=== PATIENT | female | born 1975 | race American Indian/Alaskan Native ===

== ENCOUNTER 2016-08-14 15:28 | Emergency (ER) | payer MEDICAID, OTHER ==
[2016-08-14 15:28] VITALS: BMI 33.5
[2016-08-14 15:37] VITALS: RESP 20; O2SAT 100
[2016-08-14] MEDS ORDERED: Sodium Chloride 0.9% 1,000 ML IV ONE (15:47)
[2016-08-14 16:14] LABS: BASO # 0.1 K/uL (0.0-0.2); BASO % 0.7 % (0.0-2.0); EOS # 0.1 K/uL (0.0-0.7); EOS % 0.8 % (0.0-4.0); HEMATOCRIT 42.3 % (34.0-47.0); LYMPH # 1.2 K/uL (1.0-4.3); LYMPH % 12.9 % (20.0-40.0); MEAN CORPUSCULAR HGB CONC 32.7 g/dL (33.0-37.0); MEAN PLATELET VOLUME 7.9 fL (7.2-11.7); MONO # 0.3 K/uL (0.0-0.8); MONO % 3.5 % (0.0-10.0); RED CELL DISTRIBUTION WIDTH 13.8 % (11.5-14.5); WHITE BLOOD COUNT 9.2 K/uL (4.8-10.8)
[2016-08-14 16:25] LABS: CHLORIDE 104 mmol/L (98-107); POTASSIUM 4.3 mmol/L (3.6-5.2); SODIUM 138 mmol/L (132-148)
[2016-08-14 16:27] LABS: GFR AFRICAN-AMERICAN > 60
[2016-08-14 16:28] LABS: ALB/GLOB RATIO 1.3 (1.0-2.1); ALKALINE PHOSPHATASE 60 U/L (38-126); ALT/SGPT 25 U/L (9-52); AST/SGOT 23 U/L (14-36); BILIRUBIN,TOTAL 0.5 mg/dL (0.2-1.3); BLOOD UREA NITROGEN 9 mg/dL (7-17); CALCIUM 9.2 mg/dl (8.6-10.4); CARBON DIOXIDE 27 mmol/L (22-30); GLUCOSE,RANDOM 105 mg/dL (65-105); TOTAL PROTEIN 7.6 g/dL (6.3-8.3)
[2016-08-14 16:29] LABS: ALCOHOL SERUM < 10 mg/dl (0-10)
[2016-08-14 16:30] LABS: RBC URINE 3 /hpf (0-3); URINE BILIRUBIN NEGATIVE (NEGATIVE); URINE BLOOD 3+ (NEGATIVE); URINE COLOR Yellow (YELLOW); URINE GLUCOSE (UA) NORMAL (Normal); URINE KETONE TRACE mg/dL (NEGATIVE); URINE LEUKOCYTE ESTERASE NEG Leu/uL (Negative); URINE PROTEIN 1+ mg/dL (NEGATIVE); WBC URINE 5 /hpf (0-5)
--- NOTE | 2016-08-14 17:29 | C.PDOC ---
History Of Present Illness 41 y/o female presents to the ED for evaluation of nausea and vomiting which began earlier today. Patient states she was asymptomatic upon waking up this morning and ate her usual breakfast. She notes her symptoms began while she was on her way to work. She notes she has been stressed lately, reporting social stressors including caring for her mother. She denies fever, chills, abdominal pain, suicidal/homicidal ideation and history of depression. Time Seen by Provider: 08/14/16 15:41 Chief Complaint (Nursing): GI Problem History Per: Patient History/Exam Limitations: no limitations Onset/Duration Of Symptoms: Hrs Current Symptoms Are (Timing): Still Present Quality Of Discomfort: denies: "Pain" Associated Symptoms: Nausea, Vomiting. denies: Fever, Chills Additional History Per: Patient Abnormal Vaginal Bleeding: No Past Medical History Reviewed: Historical Data, Nursing Documentation, Vital Signs Vital Signs: Last Vital Signs Temp 98.3 F 08/14/16 18:29 Pulse 78 08/14/16 18:29 Resp 20 08/14/16 18:29 BP 117/76 08/14/16 18:29 Pulse Ox 100 08/14/16 18:34 - Medical History PMH: Asthma Surgical History: Appendectomy Family History: States: Unknown Family Hx - Social History Hx Tobacco Use: Yes Hx Alcohol Use: No Hx Substance Use: No - Immunization History Hx Tetanus Toxoid Vaccination: No Hx Influenza Vaccination: No Hx Pneumococcal Vaccination: No Review Of Systems Except As Marked, All Systems Reviewed And Found Negative. Gastrointestinal: Positive for: Nausea, Vomiting. Negative for: Abdominal Pain Psych: Negative for: Suicidal ideation Physical Exam - Physical Exam Appears: Non-toxic, No Acute Distress, Other (+tearful ) Skin: Normal Color, Warm, Dry Head: Atraumatic, Normacephalic Eye(s): bilateral: Normal Inspection Oral Mucosa: Moist Neck: Supple Chest: Symmetrical, No Deformity, No Tenderness Cardiovascular: Rhythm Regular, No Murmur Respiratory: Normal Breath Sounds, No Rales, No Rhonchi, No Wheezing Gastrointestinal/Abdominal: Soft, No Tenderness, No Guarding, No Rebound Back: Normal Inspection, No Vertebral Tenderness, No Paraspinal Tenderness Extremity: Normal ROM, Capillary Refill (less than 2 seconds ) Neurological/Psych: Oriented x3, Normal Speech, Normal Cognition Gait: Steady ED Course And Treatment - Laboratory Results Result Diagrams: 08/14/16 16:07 08/14/16 16:07 O2 Sat by Pulse Oximetry: 100 (on RA) Pulse Ox Interpretation: Normal - Other Rad CT Head X-Ray: Viewed By Me, Read By Radiologist Interpretation: EXAM: CT Head Without Intravenous Contrast. CLINICAL HISTORY: 41 years old, female; Pain; Headache; Additional info: Dizziness. TECHNIQUE: Axial computed tomography images of the head/brain without intravenous contrast. This CT exam. was performed using one or more of the following dose reduction techniques: automated exposure. control, adjustment of the mA and/or kV according to patient size, and/or use of iterative. reconstruction technique. COMPARISON: No relevant prior studies available. FINDINGS: Brain : Unremarkable. No hemorrhage. No significant white matter disease. No edema. Ventricles: Unremarkable. No ventriculomegaly. Bones/joints: Unremarkable. No acute fracture. Soft tissues: Unremarkable. Sinuses: Unremarkable as visualized. No acute sinusitis. Mastoid air cells: Unremarkable as visualized. No mastoid effusion. IMPRESSION: No evidence of acute intracranial pathology. Progress Note: labs ordered and reviewed. Patient received IV Fluids. On reassessment, patient notes her nausea persists and she also reports new onset of dizziness, described as a "room spinning" sensation. Patient received Reglan PO and Meclizine PO. On reassessment, patient is resting confortably, showing no signs of distress, and reports her symptoms have resolved. PO challenge ordered. On re-evaluation, pt tolerated PO. Feels comfortable going home. No n/ v. No abd pain. No dizziness. No neurological changes. No chest pain. Pt was evlauated pt [employer] worker [place] and outpt follow up given. (-) SI (-) HI. Pt left prior to EKG and re-evaluation and discharge. Disposition - Disposition Disposition: HOME/ ROUTINE Disposition Time: 18:27 Condition: STABLE Additional Instructions: Follow up with your primary medical doctor or clinic in 2-5 days for further evaluation. Return to the emergency department at any time if symptoms persist or worsen. Prescriptions: Ondansetron ODT [Zofran ODT] 1 odt PO BID PRN #5 odt PRN Reason: Nausea/Vomiting Instructions: Acute Nausea and Vomiting (ED) - Clinical Impression Clinical Impression: N&V (nausea and vomiting), Dizziness - PA / [employer] / Resident Statement MD/DO has reviewed & agrees with the documentation as recorded. - Scribe Statement The provider has reviewed the documentation as recorded by the Scribe (Snow Mitchell) All medical record entries made by the Scribe were at my direction and personally dictated by me. I have reviewed the chart and agree that the record accurately reflects my personal performance of the history, physical exam, medical decision making, and the department course for this patient. I have also personally directed, reviewed, and agree with the discharge instructions and disposition.
[2016-08-14 18:29] VITALS: BP 117/76; PULSE 78; TEMP 98.3
--- NOTE | 2016-08-15 07:44 | CT ---
PROCEDURE: CT HEAD WITHOUT CONTRAST. HISTORY: dizziness COMPARISON: None available. TECHNIQUE: Axial computed tomography images were obtained through the head/brain without intravenous contrast. Radiation dose: Total exam DLP = 1053 mGy-cm. This CT exam was performed using one or more of the following dose reduction techniques: Automated exposure control, adjustment of the mA and/or kV according to patient size, and/or use of iterative reconstruction technique. FINDINGS: HEMORRHAGE: No intracranial hemorrhage. BRAIN: No mass effect or edema. No atrophy or chronic microvascular ischemic changes. VENTRICLES: Unremarkable. No hydrocephalus. CALVARIUM: Unremarkable. PARANASAL SINUSES: Unremarkable as visualized. No significant inflammatory changes. MASTOID AIR CELLS: Unremarkable as visualized. No inflammatory changes. OTHER FINDINGS: None. IMPRESSION: No acute intracranial abnormality. If focal neurologic deficit persists, consider MRI. These findings were preliminarily reported at 5:35 p.m. on 08/14/[address] Dung Tian from [facility].
== END 2016-08-14 18:43 | disposition home or self-care (01) ==
LOC: C.ER 15:28
DX: R11.2 Nausea with vomiting, unspecified (principal); R42 Dizziness and giddiness
CPT/HCPCS: 70450; 80053; 81001; 82550; 82553; 83690; 84484; 84703; 85025; 96360; 99285; G0480; J2765; J7040

== ENCOUNTER 2017-01-05 08:14 | Emergency (ER) | payer MEDICAID, OTHER ==
[2017-01-05 08:23] VITALS: BMI 30.7
[2017-01-05 08:27] VITALS: RESP 16
--- NOTE | 2017-01-05 08:44 | C.PDOC ---
History Of Present Illness Patient is a 41 y/o F presenting with chest pain. Patient reports that she has 2 days left of a 2 week course of amoxicillin for uri. She reports that she has had a non-productive cough with uri symptoms x 2 weeks. She reports that while at work today she started to cough and then developed chest pain with her coughing. She reports that the pain only with inspiration and coughing. Denies shortness of breath, fever. Given aspirin 324mg by EMS Denies hx of DM, HTN, family hx of early cardiac disease. +Tobacco use. Time Seen by Provider: 01/05/17 08:24 Chief Complaint (Nursing): Chest Pain Past Medical History Vital Signs: Last Vital Signs Temp 98 F 01/05/17 10:38 Pulse 83 01/05/17 10:38 Resp 16 01/05/17 10:38 BP 126/76 01/05/17 10:38 Pulse Ox 96 01/05/17 10:38 - Medical History PMH: Asthma Surgical History: Appendectomy Family History: States: Unknown Family Hx - Social History Hx Tobacco Use: Yes Hx Alcohol Use: No Hx Substance Use: No - Immunization History Hx Tetanus Toxoid Vaccination: No Hx Influenza Vaccination: No Hx Pneumococcal Vaccination: No Review Of Systems Constitutional: Negative for: Fever, Chills ENT: Negative for: Ear Pain Cardiovascular: Positive for: Chest Pain. Negative for: Palpitations, Orthopnea , Edema, Light Headedness Respiratory: Positive for: Cough, Pleuritic Pain, Sputum. Negative for: Shortness of Breath, SOB with Excertion, Wheezing Gastrointestinal: Negative for: Nausea, Vomiting, Abdominal Pain, Diarrhea, Constipation Genitourinary: Negative for: Dysuria Musculoskeletal: Negative for: Neck Pain, Back Pain Skin: Negative for: Rash Neurological: Negative for: Weakness, Numbness Physical Exam - Physical Exam Appears: Well, Non-toxic, No Acute Distress Skin: Normal Color, Warm, Dry Head: Atraumatic, Normacephalic Eye(s): bilateral: Normal Inspection, PERRL, EOMI Neck: Supple Chest: Symmetrical Cardiovascular: Rhythm Regular Respiratory: Normal Breath Sounds Gastrointestinal/Abdominal: Soft, No Tenderness Back: Normal Inspection, No CVA Tenderness Extremity: Normal ROM ED Course And Treatment - Laboratory Results Result Diagrams: 01/05/17 08:57 01/05/17 08:57 O2 Sat by Pulse Oximetry: 95 Medical Decision Making Medical Decision Making: Patient's only risk factor is tobacco use. Chest pain is more consistent with uri due to pleuritic nature and association with coughing. EKG shows NSR at 64bpm with normal intervals and no st changes. 10:26AM Cxray negative. D-dimer, bnp and trop x 1 negative. Normal wbc. Patient has PMD follow-up in 2 days and reports that she will return with any worsening symptoms. Disposition - Disposition Disposition: HOME/ ROUTINE Disposition Time: 10:27 Condition: GOOD Additional Instructions: Follow-up with your PMD on Tuesday as scheduled. Return to ED if condition worsens. Take cough medication as prescribed. Finish antiboitics. Instructions: Upper Respiratory Infection (ED), Cold Symptoms (ED), Acute Cough (ED) Forms: [facility] (Yoruba), Work Excuse - Clinical Impression Clinical Impression: Cough, Upper respiratory infection
[2017-01-05 09:01] LABS: BASO # 0.1 K/uL (0.0-0.2); BASO % 0.9 % (0.0-2.0); EOS # 0.2 K/uL (0.0-0.7); EOS % 2.2 % (0.0-4.0); HEMATOCRIT 40.5 % (34.0-47.0); LYMPH # 2.9 K/uL (1.0-4.3); MEAN CELL VOLUME 93.1 fL (81.0-99.0); MEAN CORPUSCULAR HEMOGLOBIN 30.5 pg (27.0-31.0); MEAN CORPUSCULAR HGB CONC 32.7 g/dL (33.0-37.0); MEAN PLATELET VOLUME 7.7 fL (7.2-11.7); MONO # 0.6 K/uL (0.0-0.8); MONO % 6.3 % (0.0-10.0); NRBC % 0.1 % (0.0-2.0); RED CELL DISTRIBUTION WIDTH 13.8 % (11.5-14.5); WHITE BLOOD COUNT 9.1 K/uL (4.8-10.8)
[2017-01-05 09:24] LABS: CHLORIDE 103 mmol/L (98-107); POTASSIUM 3.8 mmol/L (3.6-5.2); SODIUM 133 mmol/L (132-148)
[2017-01-05 09:28] LABS: ALB/GLOB RATIO 1.4 (1.0-2.1); ALKALINE PHOSPHATASE 41 U/L (38-126); ALT/SGPT 31 U/L (9-52); AST/SGOT 27 U/L (14-36); BLOOD UREA NITROGEN 11 mg/dL (7-17); CALCIUM 8.4 mg/dl (8.6-10.4); CARBON DIOXIDE 23 mmol/L (22-30); GFR AFRICAN-AMERICAN > 60; GLUCOSE,RANDOM 90 mg/dL (65-105); MAGNESIUM 1.8 mg/dL (1.6-2.3); PHOSPHOROUS 2.8 mg/dL (2.5-4.5); TOTAL PROTEIN 6.3 g/dL (6.3-8.3)
[2017-01-05 10:39] VITALS: BP 126/76; PULSE 83; TEMP 98
--- NOTE | 2017-01-05 12:49 | RAD ---
HISTORY: cough, shortness of breath COMPARISON: Chest x-ray performed 04/19/15 TECHNIQUE: Chest PA and lateral FINDINGS: LUNGS: No focal consolidation. Please note that chest x-ray has limited sensitivity for the detection of pulmonary masses. PLEURA: No significant pleural effusion identified. No definite pneumothorax . CARDIOVASCULAR: The cardiomediastinal silhouette appears within normal limits of size. OSSEOUS STRUCTURES: Degenerative changes of the spine. VISUALIZED UPPER ABDOMEN: Unremarkable. OTHER FINDINGS: None. IMPRESSION: No focal consolidation, significant pleural effusion, or definite pneumothorax identified.
[2017-01-05 13:28] VITALS: O2SAT 95
--- NOTE | 2017-01-07 16:24 | CARD ---
APPROVED REPORT EKG Measurement Heart [id number] <Conclusion> Normal sinus rhythm Early repolarization. Normal ECG
== END 2017-01-05 10:40 | disposition home or self-care (01) ==
LOC: C.ER 08:14
DX: J06.9 Acute upper respiratory infection, unspecified (principal); Z72.0 Tobacco use; R05 Cough
CPT/HCPCS: 71020; 80053; 82550; 82553; 83735; 83880; 84100; 84484; 85025; 85378; 96374; 99285; J1885

== ENCOUNTER 2017-10-22 12:12 | Emergency (ER) | payer MEDICAID, OTHER ==
[2017-10-22 12:22] VITALS: BMI 31.7
[2017-10-22 12:27] VITALS: BP 111/67; PULSE 65; RESP 22; TEMP 97.3; O2SAT 96
[2017-10-22] MEDS ORDERED: Albuterol-Ipratrop 3 mg / 0.5 (3 ml) UD ONE ×2 (12:38→13:15)
[2017-10-22] MEDS ORDERED: Albuterol-Ipratrop 3 mg / 0.5 (3 ml) UD INH STA (13:09)
--- NOTE | 2017-10-22 13:26 | C.PDOC ---
History Of Present Illness 42 year old female with history of asthma and smoking presents to ED for evaluation of shortness of breath and wheezing. Patient states she is trying to cut down on smoking and smokes 4 cigarettes a day. Patient reports she ran out of albuterol and claritan because of insurance lapses. Patent was given Duoneb at triage and feels much better. Denies fever, cough, chest pain. Time Seen by Provider: 10/22/17 12:44 Chief Complaint (Nursing): Shortness Of Breath History Per: Patient History/Exam Limitations: no limitations Onset/Duration Of Symptoms: Days Current Symptoms Are (Timing): Better Current Respiratory Medications: Albuterol (but ran out due to an insurance lapse), Other (Claritan which she ran out of due to an insurance lapse.) Associated Symptoms: denies: Fever, Chest Pain Recent travel outside of the [place]: No Past Medical History Reviewed: Historical Data, Nursing Documentation, Vital Signs Vital Signs: Last Vital Signs Temp 97.3 F L 10/22/17 12:37 Pulse 65 10/22/17 12:37 Resp 22 10/22/17 12:40 BP 111/67 10/22/17 12:37 Pulse Ox 96 10/22/17 13:31 - Medical History PMH: Asthma Surgical History: Appendectomy Family History: States: No Known Family Hx - Social History Hx Tobacco Use: Yes Hx Alcohol Use: No Hx Substance Use: No - Immunization History Hx Tetanus Toxoid Vaccination: No Hx Influenza Vaccination: No Hx Pneumococcal Vaccination: No Review Of Systems Except As Marked, All Systems Reviewed And Found Negative. Constitutional: Negative for: Fever Cardiovascular: Negative for: Chest Pain Respiratory: Positive for: Shortness of Breath, Wheezing. Negative for: Cough Physical Exam - Physical Exam Appears: Non-toxic, No Acute Distress Skin: Warm, Dry Head: Atraumatic, Normacephalic Eye(s): bilateral: Normal Inspection, PERRL, EOMI Oral Mucosa: Moist Neck: Supple Chest: Symmetrical Cardiovascular: Rhythm Regular Respiratory: Normal Breath Sounds, No Rhonchi, No Wheezing Gastrointestinal/Abdominal: Soft, No Tenderness Extremity: Normal ROM Extremity: Bilateral: Atraumatic Neurological/Psych: Oriented x3, Normal Speech, Normal Cognition Gait: Steady ED Course And Treatment O2 Sat by Pulse Oximetry: 96 (RA) Pulse Ox Interpretation: Normal Medical Decision Making Medical Decision Making: Impression: Asthma Plan: * Duoneb Patient seen and examined, no wheezing on exam at this time after Duoneb at triage. Patient requesting another Duoneb treatment, which was ordered and given. Patient requesting to speak to someone who could try to help her get free medication until she can get new insurance. Explained that case management is not in house on the weekends. Upon hearing this patient asked for discharge paperwork to go home. Patient with clear lungs on auscultation, is in no respiratory distress. Stable for discharge. Advised her to return to the ED for any new or worsening symptoms. Disposition - Disposition Disposition: HOME/ ROUTINE Disposition Time: 14:29 Condition: STABLE Additional Instructions: MARYCRUZ GUERRERO, thank you for letting us take care of you today. Your provider was Nabila Gerardo MD and you were treated for SOB. The emergency medical care you received today was directed at your acute symptoms. If you were prescribed any medication, please fill it and take as directed. It may take several days for your symptoms to resolve. Return to the Emergency Department if your symptoms worsen, do not improve, or if you have any other problems. Please contact your doctor or call one of the physicians/clinics you have been referred to that are listed on the Patient Visit Information form that is included in your discharge packet. Bring any paperwork you were given at discharge with you along with any medications you are taking to your follow up visit. Our treatment cannot replace ongoing medical care by a primary care provider outside of the emergency department. Thank you for allowing the [facility] team to be part of your care today. If you had an X-Ray or CT scan: A Radiologist will review the ED reading if any change in treatment is needed we will contact you. If you had a blood, urine, or wound culture: It will take several days for the results, if any change in treatment is needed we will contact you. If you had an STI test: It will take 48 hours for the results. Please call after 1 week if you have not heard back. Instructions: Asthma, Adult (DC) Forms: [employer] [facility] (Indonesian) - Clinical Impression Clinical Impression: Asthma - Scribe Statement The provider has reviewed the documentation as recorded by the Scribe Sahib Mookie Provider Attestation: MARYCRUZ GUERRERO, thank you for letting us take care of you today. Your provider was Nabila Gerardo MD and you were treated for SOB. The emergency medical care you received today was directed at your acute symptoms. If you were prescribed any medication, please fill it and take as directed. It may take several days for your symptoms to resolve. Return to the Emergency Department if your symptoms worsen, do not improve, or if you have any other problems. Please contact your doctor or call one of the physicians/clinics you have been referred to that are listed on the Patient Visit Information form that is included in your discharge packet. Bring any paperwork you were given at discharge with you along with any medications you are taking to your follow up visit. Our treatment cannot replace ongoing medical care by a primary care provider outside of the emergency department. Thank you for allowing the [facility] team to be part of your care today. If you had an X-Ray or CT scan: A Radiologist will review the ED reading if any change in treatment is needed we will contact you. If you had a blood, urine, or wound culture: It will take several days for the results, if any change in treatment is needed we will contact you. If you had an STI test: It will take 48 hours for the results. Please call after 1 week if you have not heard back.
--- NOTE | 2017-10-25 16:53 | CARD ---
APPROVED REPORT Date of service: 10/22/2017 EKG Measurement Heart [id number] <Conclusion> Sinus rhythm with short [place] Otherwise normal ECG
== END 2017-10-22 14:05 | disposition home or self-care (01) ==
LOC: C.ER 12:12
DX: J45.909 Unspecified asthma, uncomplicated (principal)